=== PATIENT | female | born 1975 | race Caucasian/White ===

== ENCOUNTER → 2017-09-02 | Outpatient (CLI) | payer BC ==
--- NOTE | 2017-09-02 10:45 | KCIC ---
Small bowel series dated 09/02/2017. No comparison available. Clinical indication: Chronic lower abdominal pain and constipation. Diarrhea and bloating. FINDINGS: After initial room manager radiograph, patient was administered oral barium and imaging was acquired at 0 minutes, 30 minutes and 45 minutes. Spot compression imaging of the terminal ileum and small bowel performed after 45 minutes. 1 minute 7 seconds fluoroscopic time used for the study. 8 images. Contrast material reaches the colon at about 30 minutes. Small bowel is normal in caliber. There is normal flow pattern with no evidence of wall thickening or fold thickening. No intrinsic or extrinsic mass effect. No apparent mucosal lesion. Spot compression imaging of the terminal ileum is unremarkable. IMPRESSION: Negative small bowel series. Electronically signed by: Malcolm Bernal MD (09/02/2017 10:41 AM) [id number]
== END | disposition home or self-care (01) ==
LOC: KCIC 08:42
PROVIDERS: ATTEND Internal Medicine Gastroenterology
DX: K59.00 Constipation, unspecified (principal); R19.7 Diarrhea, unspecified
CPT/HCPCS: 74250

== ENCOUNTER → 2017-09-09 | Outpatient (CLI) | payer BC ==
[~2017-09-09] MED LIST: CONTRAST GIVEN MC PRN; DEXL60CA2 PO; IOHEXOL 240 MG/ML 50ML VIAL. PO ONE; IOHEXOL 300 MG/ML 100ML VIAL. IV ONE; PROAIR HFA8.5 GM INH; SERT100T8 PO
--- NOTE | 2017-09-09 14:48 | KCIC ---
CT abdomen and pelvis with contrast Indication: Abdominal pain for about 8 months. Pain is generalized. Postcholecystectomy. .. . Technique: Intravenous contrast is given. Oral contrast was given. Comparison:None available Exposure: One or more of the following individualized dose reduction techniques were utilized for this examination: 1. Automated exposure control 2. Adjustment of the mA and/or kV according to patient size 3. Use of iterative reconstruction technique. FINDINGS: Lower thorax: Lung bases are clear. Pneumoperitoneum:No gross pneumoperitoneum. Liver: Tiny low-density lesion in the right lobe of the liver measures 8 mm, too small to characterize but would typically represent a small cyst or other benign structure. Spleen: Borderline enlarged, measuring 14 cm long axis. Pancreas: Unremarkable Adrenals:No evidence of mass. Kidneys:Unremarkable Gallbladder: Surgically absent. Aorta: Abdominal aorta is nonaneurysmal Lymph nodes: No significant enlargement GI tract: No bowel obstruction. No paracolonic inflammation. Appendix: Not visualized. There are surgical clips in the right lower quadrant. Ascites: Trace free fluid in the cul-de-sac may be physiologic. Urinary bladder: Not opacified, but no apparent abnormality. No evidence of pelvic mass. Bones: No destructive process. IMPRESSION: 1. No definite acute findings. 2. Borderline splenomegaly. Electronically signed by: Malcolm Palmer MD (09/09/2017 2:45 PM) [facility]
== END | disposition home or self-care (01) ==
LOC: KCIC CT 13:05
PROVIDERS: ATTEND Internal Medicine Gastroenterology
DX: R10.9 Unspecified abdominal pain (principal); R16.1 Splenomegaly, not elsewhere classified
CPT/HCPCS: 74177; Q9966; Q9967

== ENCOUNTER → 2018-02-17 | Outpatient (CLI) | payer BC | END | disposition home or self-care (01) | LOC: KCIC MAMMO 12:08 | DX: Z12.31 Encounter for screening mammogram for malignant neoplasm of breast (principal) | CPT/HCPCS: 77063; 77067 ==

== ENCOUNTER → 2019-02-23 | Outpatient (CLI) | payer BC ==
[~2019-02-23] MED LIST changes: +ALBU2.5V8 INH; -CONTRAST GIVEN MC PRN; -IOHEXOL 240 MG/ML 50ML VIAL. PO ONE; -IOHEXOL 300 MG/ML 100ML VIAL. IV ONE; -PROAIR HFA8.5 GM INH
--- NOTE | 2019-02-23 14:29 | KCIC ---
Bilateral diagnostic digital mammograms with 3-D tomosynthesis: Reason for examination: Left breast lumps on clinical exam with left breast pain for 6 to 8 months.. Comparison is made to previous study dated 02/17/2018. Bilateral mammograms in CC and oblique projections were obtained with 2-D imaging and 3-D tomosynthesis imaging on a Siemens Inspiration unit and reviewed on the workstation. Interpretation was made with the benefit of CAD. The skin and nipples show no abnormalities. No abnormal axillary lymph nodes are seen. The breast parenchyma shows scattered fatty and fibroglandular density. (Breast density: Category B.) There is suggestion of a subtle nodular density at the 3:00 B position of the left breast which may represent some superimposed tissues. Further evaluation with ultrasound to follow. There are no other dominant masses, suspicious calcifications or architectural distortion. Impression: Subtle nodularity suggested at the 3:00 B position of the left breast. No other focal abnormality seen. Ultrasound to follow. BI-RADS category 0 : Incomplete. Needs additional imaging evaluation. Left breast ultrasound: Ultrasound examination was performed in the areas of clinical and mammographic concern and at the left axilla. No discrete cystic or solid nodules or architectural distortions are seen in the left breast in the area of mammographic or clinical concern. No abnormal appearing lymph nodes are seen in the left axilla. IMPRESSION: No suspicious abnormality seen in the left breast. Recommend routine mammographic follow-up. BI-RADS Category 2: Benign. "Our facility is accredited by the [employer] Mammography Program." This patient's information has been entered into a reminder system for the patient to be notified with the results of her examination and a target date for the next mammogram. Electronically signed by: Marilu Humphries MD (02/23/2019 2:26 PM) [id number]
== END | disposition home or self-care (01) ==
LOC: KCIC MAMMO 12:41
PROVIDERS: ATTEND Obstetrics & Gynecology
DX: N63.20 Unspecified lump in the left breast, unspecified quadrant (principal)
CPT/HCPCS: 76641; 77066; G0279; 77062

== ENCOUNTER → 2021-03-31 | Outpatient (CLI) | payer BC, OTHER ==
[~2021-03-31] MED LIST changes: +SERT-268 PO; -SERT100T8 PO
--- NOTE | 2021-03-31 10:27 | KCIC ---
Bilateral diagnostic digital mammograms with 3-D tomosynthesis: Reason for examination: Left breast lump/ridge for 2 months with tenderness. Comparison is made to previous studies dated 02/23/2019 and 02/17/2018. Bilateral mammograms in CC and oblique projections were obtained with 2-D imaging and 3-D tomosynthes is imaging on a Siemens Inspiration unit and reviewed on the workstation. Interpretation was made wit h the benefit of CAD. The skin and nipples show no abnormalities. No abnormal axillary lymph nodes are seen. The breast par enchyma shows scattered fatty and fibroglandular density. (Breast density: Category B.) There are no dominant masses, suspicious calcifications or architectural distortion. Impression: No evidence of malignancy. Ultrasound to follow. BI-RAD Category 0: Incomplete. Needs additional imaging evaluation. Left breast ultrasound: Ultrasound examination of the left breast and axilla was performed. In the area of clinical concern at the 12:00 position 11 cm from the nipple, there is no discrete cys tic or solid nodule or architectural distortion. No abnormal appearing lymph nodes are seen in the le ft axilla. IMPRESSION: No focal abnormality evident sonographically. Recommend routine mammographic follow-up. BI-RADS Category 1: Negative. "Our facility is accredited by the [employer] Mammography [employer]." This patient's information has been entered into a reminder system for the patient to be notified wit h the results of her examination and a target date for the next mammogram. Electronically signed by: Marilu Humphries MD (03/31/2021 10:25 AM) [id number]
== END ==
LOC: KCIC MAMMO 08:42
PROVIDERS: ATTEND Obstetrics & Gynecology
DX: R92.8 Other abnormal and inconclusive findings on diagnostic imaging of breast (principal); N63.20 Unspecified lump in the left breast, unspecified quadrant
CPT/HCPCS: 76641; 77066; G0279; 77062